=== PATIENT | female | born 1980 | race Caucasian/White ===

== ENCOUNTER → 2024-08-07 11:35 | Outpatient (REF) | payer OTHER, SELFPAY | LOC: WDC 11:35 | PROVIDERS: ATTENDING PHYSICIAN Nurse Practitioner Family | DX: Z12.31 Encounter for screening mammogram for malignant neoplasm of breast (principal) | CPT/HCPCS: 77063; 77067 ==

== ENCOUNTER → 2024-09-03 09:18 | Outpatient (REF) | payer OTHER, SELFPAY | LOC: RAD 09:18 | PROVIDERS: ATTENDING PHYSICIAN Nurse Practitioner Family | DX: K76.0 Fatty (change of) liver, not elsewhere classified (principal); K80.20 Calculus of gallbladder without cholecystitis without obstruction | CPT/HCPCS: 76700 ==